=== PATIENT | female | born 1980 | race Two or more races ===

== ENCOUNTER 2019-11-05 13:34 | Emergency (ER) | payer OTHER ==
[~2019-11-05] VITALS: Ht 157.5 cm; Wt 57.6 kg
--- NOTE | 2019-11-05 13:44 | NUR ---
BIB PD C/O SORE THROAT X 2 DAYS, PT TO BED 6, -SOB NOTED, -CP, VSS, PENDING MD BURRELL
[2019-11-05] MEDS ORDERED: ALBUTEROL FS 2.5 MG/3 ML VIAL.NEB ONE (14:17)
[2019-11-05] MEDS ORDERED: IPRATROPIUM NEB FS 0.5 MG/2.5 ML AMPUL.NEB ONE (14:17)
[2019-11-05] MEDS ORDERED: ALBUTEROL SULFATE INH 18 GM HFA.AER.AD IH ONE (14:30)
[2019-11-05] MEDS ORDERED: IPRATROPIUM NEB FS 0.5 MG/2.5 ML AMPUL.NEB NEB ONE (14:30)
[2019-11-05] MEDS ORDERED: ALBUTEROL FS 2.5 MG/3 ML VIAL.NEB NEB ONE (14:30)
[2019-11-05] MEDS ORDERED: IV NS 0.9% 1,000 ML BAG IV ONE (14:30)
[2019-11-05] MEDS ORDERED: DEXAMETHASONE SOD PHOSPHATE 10 MG/ML VIAL IV ONE (14:30)
[2019-11-05 15:06] LABS: HEMOGLOBIN 10.6 g/dL (11.5-14.8); NEUTROPHILS # (AUTO) 14.1 /CMM (1.8-8.9); RED BLOOD CELL COUNT(AUTO) 4.88 MIL/uL (4.0-5.2)
[2019-11-05] MEDS ORDERED: DEXAMETHASONE SOD PHOSPHATE 10 MG/ML VIAL ONE (15:11)
[2019-11-05 15:12] LABS: BASOPHILS % (AUTO) 0.2 % (0.0-2.0); HEMATOCRIT 34 % (33-45); LYMPHOCYTES # (AUTO) 1.5 /CMM (0.8-4.8); LYMPHOCYTES % (AUTO) 8.7 % (20.0-44.0); MEAN CORPUSCULAR HGB CONC 31 g/dl (31.0-36.0); MEAN CORPUSCULAR VOLUME 70 fL (82-100); MONOCYTES # (AUTO) 1.2 /CMM (0.1-1.30); NEUTROPHILS % (AUTO) 83.1 % (43.0-81.0); PLATELET COUNT (AUTO) 369 /CMM (150-450); WHITE BLOOD COUNT (AUTO) 16.9 K/uL (4.3-11.0)
[2019-11-05 15:14] LABS: CALCIUM, SERUM 9.1 mg/dL (8.5-10.1); CREATININE 0.5 mg/dL (0.6-1.3); POTASSIUM 4.2 mmol/L (3.5-5.1)
[2019-11-05 15:29] LABS: ALBUMIN 2.8 g/dL (3.4-5.0); BILIRUBIN,DIRECT 0.1 mg/dL (0.0-0.2); BILIRUBIN,TOTAL 0.3 mg/dL (0.2-1.0); TOTAL PROTEIN, SERUM 8.5 g/dL (6.4-8.2)
--- NOTE | 2019-11-05 16:35 | NUR ---
Zaynab addison in [facility] - 11/05/19 at 1839 by RONNELL PER [facility] OFFICERS; PT NO LONGER IN CUSTODY
--- NOTE | 2019-11-05 16:45 | NUR ---
ALL SWABS SENT TO LAB: RSV --ON GREEN SWAB INFLUENZA --ON REDTOP WITH SWAB COVID NASAL -- VIRAL MED WITH FLOCK ORANGE SWAB COVID ORAL --VIRAL MED WITH DOUBLE QTIP RESP VIRAL PANEL -- VIRAL MED WITH FLOCK ORANGE SWAB
[2019-11-05] MEDS ORDERED: PENICILLIN G BENZATHINE 2.4 MMU/4 ML ML IM ONE ×2 (17:00)
--- NOTE | 2019-11-05 17:49 | NUR ---
CALLED [facility]FECT[facility] DR. MELINDA CORDERO [phone]
[2019-11-05 18:00] VITALS: BP 127/60
[2019-11-05] MEDS ORDERED: ALBUTEROL SULFATE 8 GM HFA.AER.AD IH PRN (18:00)
[2019-11-05] MEDS ORDERED: ALBUTEROL SULFATE 8 GM HFA.AER.AD IH ONE (18:00)
--- NOTE | 2019-11-05 18:36 | NUR ---
PT DISCHARGED WITH [employer] OFFICERS BACK TO [facility]; ALL DISCHARGE PAPERWORK SENT. PT AMB WITH STEADY GAIT. VSS. NAD NOTED.
--- NOTE | 2019-11-05 18:38 | NUR ---
PER JAILENE CHARGE NURSE; GIVEN [employer] OFFICERS COPY OF MED REC; MAY GIVE RESULT TO THE OFFICER FOR COVID TEST
== END 2019-11-05 18:38 ==
LOC: ER 13:36
DX: J02.9 Acute pharyngitis, unspecified (principal); Z20.828 Contact with and (suspected) exposure to other viral communicable diseases
CPT/HCPCS: 36415; 71045; 80048; 80076; 85025; 87070; 87420; 87633; 87635; 87804 ×2; 87880; 96372; 96374; 99284; J0558; J1100; 86403-TC; U0002